=== PATIENT | male | born 1960 | race Caucasian/White ===

== ENCOUNTER 2024-02-16 05:42 | Outpatient (CLI) | payer BC, SELFPAY | END 2024-02-16 05:43 | disposition home or self-care (01) | LOC: AMB 02-20 02:17 | PROVIDERS: Visit Provider Family Medicine | DX: R04.0 Epistaxis (principal) | CPT/HCPCS: A0425; A0429 ==

== ENCOUNTER 2024-02-16 06:13 | Emergency (ER) | payer BC, SELFPAY ==
[2024-02-16 06:22] VITALS: BP 189/132; PULSE 103; RESP 20; TEMP 36.6; O2SAT 94
--- NOTE | 2024-02-16 06:32 | ED_ITS ---
HPI - General Adult General Chief complaint: Epistaxis/Nosebleed Stated complaint: Nose Bleed Time Seen by Provider: 02/16/24 06:31 History of Present Illness HPI narrative: Pt arrives via EMS for evaluation of nosebleed that started around 0500 this morning while driving. Patient states that he was driving and his nose suddenly started bleeding. Patient states I've never seen so much blood. Patient not on blood thinners. He states that he doesn't typically get nose bleeds. Patient states that he can feel the blood dripping down the back of his throat. 63-year-old man presenting to the emergency department with concern of a nose bleed. He is just shocked at how much blood there was. Is not reporting lightheadedness. He was this morning driving when just spontaneous began bleeding. Rare nose bleed. He just got particularly worried. No anticoagulants. Medicated blood pressure has been good he says at 140 over 70s and he checks this every morning as he did this morning. Admittedly bleeding has slowed now. Related Data Home Medications ?Medication ?Instructions ?Recorded ?Confirmed Unobtainable 02/16/24 02/16/24 Allergies Allergy/AdvReac Type Severity Reaction Status Date / Time oats Allergy Verified 02/16/24 06:22 straw Allergy Uncoded 02/16/24 06:22 Review of Systems Status of ROS: Reports: 6 or more systems reviewed and unremarkable except as noted in History and below [facility] Social History Non-prescribed substance use: denies use Exam Narrative: Exam Narrative: Pleasant. NAD. Breathing easily but holding a blood-stained tissue on his nose. Blood stained clothing. There is relatively fresh blood in the posterior oropharynx as well. Examining the nose shows a blood broadly over the right anterior septum. Some dried blood about the left naris. Const: Vital Signs, click to edit/add: Vital Signs - 24 hr 02/16/24 06:22 Temperature 97.8 F Pulse Rate [Left P ulse Oximeter] 103 H Respiratory Rate 20 Blood Pressure [Ri ght Upper Arm] 189/132 H Pulse Oximetry 94 Oxygen Delivery Me thod Room Air Documenting provider has reviewed patient's vital signs: yes Course Vital Signs Vital signs: Initial Vital Signs Temperature 97.8 F 02/16/24 06:22 Temperature Source Temporal Artery Scan 02/16/24 06:22 Pulse Rate 103 H 02/16/24 06:22 Pulse Rhythm Regular 02/16/24 06:22 Pulse Strength 3+ Normal 02/16/24 06:22 Respiratory Rate 20 02/16/24 06:22 Blood Pressure 189/132 H 02/16/24 06:22 Blood Pressure Mean 151 H 02/16/24 06:22 Pulse Oximetry 94 02/16/24 06:22 Oxygen Delivery Method Room Air 02/16/24 06:22 Vital Signs Temperature 97.8 F 02/16/24 06:22 Pulse Rate 103 H 02/16/24 06:22 Respiratory Rate 20 02/16/24 06:22 Blood Pressure 189/132 H 02/16/24 06:22 Pulse Oximetry 94 02/16/24 06:22 Oxygen Delivery Method Room Air 02/16/24 06:22 Temperature 97.8 F 02/16/24 06:22 Pulse Rate 103 H 02/16/24 06:22 Respiratory Rate 20 02/16/24 06:22 Blood Pressure 189/132 H 02/16/24 06:22 Pulse Oximetry 94 02/16/24 06:22 Oxygen Delivery Method Room Air 02/16/24 06:22 Medications Administered Medications: Discontinued Medications Generic Name Dose Route Start Last Admin Trade Name Liseth PRN Reason Stop Dose Admin Cocaine HCl 4 ml 02/16/24 06:38 02/16/24 06:49 Cocaine Hcl 4 % 4 Ml Solution NOSTRIL-R 02/16/24 06:39 4 ml ONCE ONE Administration Medical Decision Making MDM Narrative Medical decision making narrative: I am not seeing a specific spot to treat. Bleeding generally controlled. I return to place pain soaked cotton balls in the right and left side for better visualization. The removing the cotton balls reveals no active bleeding. I do not actually see a vascular source right now. Perhaps some evidence more of clot or source more in the middle right septal area? Waiting for discharge paperwork began bleeding again. I return to place Merocel packing. This appears to control the bleeding. See patient discharge plan for further discussion Stay well-hydrated. Continue to control your blood pressure. Consider applying the supplied white petroleum jelly lightly into your nose a few times daily, definitely before bed, through the winter. While this Merocel packing is in place, recommendations would be to take prophylactic antibiotics --amoxicillin from [facility]. Leave this packing in for 3 days. (contrary to prescription, please take the amoxicillin for 4 days) Later if nosebleed recurs, apply pressure below the bridge of the nose with fingers or perhaps using the provided nose clamp. You can also place cotton balls. Discharge Plan Discharge Clinical Impression: Epistaxis Patient Disposition: Home, Self-Care Condition: Improved Additional Instructions: Stay well-hydrated. Continue to control your blood pressure. Consider applying the supplied white petroleum jelly lightly into your nose a few times daily, definitely before bed, through the winter. While this Merocel packing is in place, recommendations would be to take prophylactic antibiotics --amoxicillin from [facility]. Leave this packing in for 3 days. (contrary to prescription, please take the amoxicillin for 4 days) Later if nosebleed recurs, apply pressure below the bridge of the nose with fingers or perhaps using the provided nose clamp. You can also place cotton balls. Prescriptions: No Action Unobtainable Follow Up/Referrals: Provider,Not a Local [Primary Care Provider] - Stand Alone Forms: [facility] Info Instructions
[2024-02-16] MEDS: COCAINE HCL 4 % 4 ML SOLUTION NOSTRIL-R (06:49)
== END 2024-02-16 08:39 | disposition home or self-care (01) ==
PROVIDERS: Emergency Provider Family Medicine
DX: R04.0 Epistaxis (principal)
CPT/HCPCS: 30901; 99283; 99284; A9270